=== PATIENT | male | born 1990 | race Caucasian/White ===

== ENCOUNTER 2022-10-02 13:40 | Emergency (ER) | payer MEDICAID ==
[~2022-10-02] VITALS: Ht 175.3 cm; Wt 90.7 kg
[2022-10-02] MEDS ORDERED: PENICILLIN V P500 MG PO (16:12)
[2022-10-02 16:30] VITALS: BP 144/92
== END 2022-10-02 16:30 | disposition home or self-care (01) ==
LOC: ED 13:40
DX: R10.9 Unspecified abdominal pain (principal); F15.10 Other stimulant abuse, uncomplicated; K08.89 Other specified disorders of teeth and supporting structures; I10 Essential (primary) hypertension
CPT/HCPCS: 36415; 80053; 81001; 83690; 85025; 99284